=== PATIENT | female | born 1945 | race Caucasian/White ===

== ENCOUNTER → 2019-03-03 | Outpatient (CLI) | payer MEDICARE ==
--- NOTE | 2019-03-03 13:13 | US ---
EXAM DESCRIPTION: Venous,Lower Extremity LT: ULTRASOUND. CLINICAL HISTORY: Left leg pain COMPARISON: None Available. TECHNIQUE: Kwan-scale and doppler sonographic evaluation of the deep venous system of the left lower extremity. FINDINGS: Doppler evaluation shows normal color flow and normal phasicity and augmentation of the left common femoral vein, deep femoral vein junction with femoral vein, femoral vein, popliteal vein, greater saphenous vein junction, peroneal, anterior and posterior tibial vein. The left lower extremity deep veins were completely compressible; normal occlusion with transducer pressure. Kwan-scale survey showed no echogenic thrombus within these veins. IMPRESSION: 1. Duplex ultrasound evaluation of the left lower extremity deep venous system showing no evidence of thrombosis. Electronically signed by: Diogenes Ojeda MD 03/03/2019 1:11 PM CDT
== END ==
LOC: US 13:30
PROVIDERS: ATTEND General Practice
DX: M79.605 Pain in left leg (principal)